=== PATIENT | female | born 1985 | race Caucasian/White ===

== ENCOUNTER 2017-03-09 07:42 | Inpatient (IN) | payer BC, OTHER ==
[2017-03-09] VITALS (16 sets, daily range): BP systolic 87–116; BP diastolic 51–71; PULSE 76–96; RESP 18–20; TEMP 97.6–98.6
[~2017-03-09] VITALS: Ht 152.4 cm; Wt 55.0 kg
[~2017-03-09 07:42] MED LIST: BACT800T5 PO
[2017-03-09] MEDS ORDERED: LIDOCAINE HCL 1% 50 ML VIAL I-DERMAL PRN (08:15)
[2017-03-09] MEDS ORDERED: LIDOCAINE HCL 1% 50 ML VIAL INFIL PRN (08:15)
[2017-03-09] MEDS ORDERED: MINERAL OIL 10 ML VIAL TOPICAL PRN (08:15)
--- NOTE | 2017-03-09 08:16 | HHI.HP ---
History & Physical H&P HPI Chief Complaint Contractions and pressure Date Seen: Mar 09, 2017 Travel History International Travel<30 Days: No Contact w/Intl Traveler<30Days: No History of Present Illness HPI Patient is a 31 year old at 35-5/7 weeks gestation who presents today with contractions and increasing pressure. She denies any vaginal bleeding, gush or leaking of fluid. Positive movement. care with [facility]. History (Limited) History Past Medical History Medical History: Denies Significant Hx Obstetric History Obstetric History in 2013 at 37 weeks gestation Elective Past Surgical History Surgical History: No Previous Surgery Family History Family History: Negative Social History Alcohol Use: No Tobacco Use: No Substance Abuse: No Allergies-Medications Allergies-Medications (Allergen,Severity, Reaction): Coded Allergies: No Known Allergies (Unverified , 07/20/14) Home Meds Active Scripts Sulfamethoxazole-Trimethoprim DS (Bactrim DS) 1 Tab Tab, 1 TAB PO Q12 for 7 Days , TAB Prov:Earline Kathleen MD 07/20/14 ROS Review of Systems Except as stated in HPI: all other systems reviewed are Neg General / Constitutional: No: Fever, Chills Eyes: No: Blurred Vision, Visual changes HENT: No: Headaches Cardiovascular: No: Chest Pain or Discomfort, Palpitations Respiratory: No: Cough, Short of Breath Gastrointestinal: No: Nausea, Vomiting Genitourinary: Pelvic Pain, No: Dysuria, Hematuria, Discharge, Vaginal Bleeding Musculoskeletal: No: Edema Neurologic: No: Headache Physical Exam Physical Exam Narrative GENERAL: Well-nourished, well-developed patient. SKIN: Warm and dry. HEAD: Normocephalic and atraumatic. EYES: No scleral icterus. No injection or drainage. ENT: No nasal drainage noted. Mucous membranes pink. Airway patent. NECK: Supple, trachea midline. No JVD. CARDIOVASCULAR: Regular rate and rhythm without murmurs, gallops, or rubs. RESPIRATORY: Breath sounds equal bilaterally. No accessory muscle use. ABDOMEN/GI: Abdomen soft, non-tender, bowel sounds present, no rebound, no guarding Gravid to 35 weeks size GENITOURINARY: External Genitalia: intact and normal in appearance BUS glands: normal Cervix: posterior Dilatation: 3 Effacement: 100 Station: -2 Presentation: vertex Membranes: intact Uterine Contractions: q3-4min FHT's: Category: I Baseline: 140 Reactive: + Variability: moderate Decels: none EXTREMITIES: No cyanosis or edema. BACK: Nontender without obvious deformity. No CVA tenderness. NEUROLOGICAL: Awake and alert. Motor and sensory grossly within normal limits. Normal speech. Data Data Data Vital Signs Reviewed: Yes Orders Orders Vital Signs (Adult) .ON ADMISSION (03/09/17 08:07) ^ Labor Status (03/09/17 08:07) ^ Non Stress Test (03/09/17 08:07) ^ Hydration (03/09/17 08:07) Admit To Inpatient (03/09/17 ) Code Status (03/09/17 08:08) Vital Signs (Adult) .Per protocol (03/09/17 08:08) Activity Oob Ad Janet (03/09/17 08:08) Heart (03/09/17 08:08) Amnioinfusion (03/09/17 08:08) Urinary Catheter Management .ONCE (03/09/17 08:08) Diet Liquid (03/09/17 Breakfast) Lactated Ringer's 1000 Ml Inj (Lr 1000 M (03/09/17 08:08) Lactated Ringer's 1000 Ml Inj (Lr 1000 M (03/09/17 08:08) Sodium Chlorid 0.9% 500 Ml Inj (Ns 500 M (03/09/17 08:15) Sodium Chlor 0.9% 1000 Ml Inj (Ns 1000 M (03/09/17 08:28) Lidocaine 1% Inj (50 Ml) (Xylocaine 1% I (03/09/17 08:15) Citric Acid-Sodium Citrate Liq (Bicitra (03/09/17 08:15) Ondansetron Inj (Zofran Inj) (03/09/17 08:15) Fentanyl Inj (Fentanyl Inj) (03/09/17 08:15) Fentanyl Inj (Fentanyl Inj) (03/09/17 08:15) Penicillin G Potassium Inj (Pfizerpen-G (03/09/17 08:15) Penicillin G Potassium Inj (Pfizerpen-G (03/09/17 12:15) Complete Blood Count With Diff (03/09/17 08:08) Hold Clot (03/09/17 08:08) Abo/Rh Blood Type (03/09/17 08:08) Urinalysis - C+S If Indicated (03/09/17 08:08) Resp Oxygen Non Rebreathe Mask (03/09/17 ) ^ Epidural / Intrathecal Infus (03/09/17 08:08) Oxytocin 30 Units-500ml Premix (Pitocin (03/09/17 08:15) Lidocaine 1% Inj (50 Ml) (Xylocaine 1% I (03/09/17 08:15) Light Mineral Oil (Muri-Lube Oil) (03/09/17 08:15) Inpatient Certification (03/09/17 ) Ob/Psych Drug Screen, Urine (03/09/17 08:08) Betamethasone Inj (Celestone Soluspan In (03/09/17 08:15) MDM MDM Medical Record Reviewed: Yes Narrative Course / MDM 31 year old at 35-5/7 weeks gestation. 1. IUP- Category I tracing, reassuring. 2. Labor- Admit for labor. Penicillin per protocol. UDS. Betamethasone 12mg IM Q24H x 2. 3. GBS unknown sdw Angelika Brady MD, R3 Mar 09, 2017 08:16
[2017-03-09] MEDS: BETAMETHASONE SOD PHOS/ACETATE SUSP 30 MG/5 ML VIAL IM SCH (08:56)
[2017-03-09] MEDS ORDERED: LACTATED RINGER'S 1000 ML INJ 1,000 ML IV PRN (09:00)
[2017-03-09] MEDS ORDERED: CITRIC ACID-SODIUM CITRATE LIQ 30 ML UDC PO SCH (09:00)
[2017-03-09] MEDS ORDERED: OXYTOCIN 30 UNITS-500ML PREMIX 500 ML IV ONE (09:00)
[2017-03-09] MEDS ORDERED: LACTATED RINGER'S 1000 ML INJ 1,000 ML IV SCH (09:00)
[2017-03-09] MEDS ORDERED: SODIUM CHLORID 0.9% 500 ML INJ 500 ML IV PRN (09:00)
[2017-03-09] MEDS ORDERED: ONDANSETRON HCL 4 MG/2 ML VIAL IV PRN (09:00)
[2017-03-09] MEDS ORDERED: PENICILLIN G POTASSIUM INJ 5,000,000 UNITS in SODIUM CHLORIDE 0.9% INJ 100 ML IV ONE (09:00)
[2017-03-09] MEDS ORDERED: SODIUM CHLOR 0.9% 1000 ML INJ 1,000 ML IV PRN (09:00)
[2017-03-09 09:03] LABS: BASOPHIL % 0.3 % (0.0-2.0); EOSINOPHIL # 0.1 TH/MM3 (0-0.4); EOSINOPHIL % 1.4 % (0.0-4.0); HEMATOCRIT 33.4 % (35.0-46.0); HEMO FLAGS DIFF FINAL; LYMPH % 29.9 % (9.0-44.0); LYMPHOCYTE # 2.9 TH/MM3 (1.0-4.8); MEAN CELL VOLUME 93.8 FL (80.0-100.0); MEAN CORPUSCULAR HEMOGLOBIN 30.8 PG (27.0-34.0); MEAN CORPUSCULAR HGB CONC 32.8 % (32.0-36.0); MONO % 6.9 % (0.0-8.0); NEUT % 61.5 % (16.0-70.0); PLATELET COUNT 159 TH/MM3 (150-450); RED BLOOD COUNT 3.56 MIL/MM3 (4.00-5.30); WHITE BLOOD COUNT 9.8 TH/MM3 (4.0-11.0)
[2017-03-09 09:09] LABS: BLOOD, URINE NEG (NEG); COMMENT (UR) CULT NOT INDICATED; CULTURE IF INDICATED CULT NOT INDICATED; GLUCOSE,URINE NEG (NEG); KETONE, URINE NEG (NEG); MUCUS URINE FEW /lpf (OCC); NITRITE,URINE NEG (NEG); PH, URINE 6.5 (5.0-8.5); SQUAMOUS EPITHELIAL CELL URINE <1 /hpf (0-5); URINE COLOR YELLOW (YELLW/STRAW)
[2017-03-09] MEDS: PENICILLIN G POTASSIUM INJ 2,500,000 UNITS in SODIUM CHLORIDE 0.9% INJ 100 ML IV SCH ×2 (13:00→17:40)
--- NOTE | 2017-03-09 18:15 | PD.LABORPN ---
Subjective Subjective feeling contractions no leakage or bleeding very hungry Objective Vital Signs Vital Signs Date Time Temp Pulse Resp B/P (MAP) Pulse Ox O2 Delivery O2 Flow Rate FiO2 03/09/17 15:00 81 92/55 (67) 03/09/17 14:42 90 95/54 (68) 03/09/17 14:00 96 87/58 (68) 03/09/17 13:00 85 103/64 (77) 03/09/17 12:15 98.6 03/09/17 12:15 20 03/09/17 12:10 89 114/69 (84) 03/09/17 10:30 98.1 18 03/09/17 10:17 76 116/71 (86) Objective 100/5/-1 category 1 strip Weeks Gestation: 35 Gest Age Assessed Date: Mar 09, 2017 Gest Age Assessed Time: 18:14 Pt started active labor?: No Medical induction of labor?: No Artificial rupture of membrane: No Assessment/Plan Assessment and Plan get second dose of steroids and antibiotics anticipate continued slow change and delivery in next 48 hours. If stops may consider discharge. Maddie Forman MD Mar 09, 2017 18:15
[2017-03-09] MEDS ORDERED: ZOLPIDEM TARTRATE 5 MG TAB PO PRN (21:00)
[2017-03-10 08:02] VITALS: BP 105/63; PULSE 85; TEMP 98.1
[2017-03-10 08:14] VITALS: RESP 17
--- NOTE | 2017-03-10 08:35 | PD.OB.ANTE ---
Subjective Interval History contractions stopped yesterday and cervix remained 4-6 (no pressure now and closer to 4 cm) some bloody show strip reassuring Objective Vital Signs Vital Signs Date Time Temp Pulse Resp B/P (MAP) Pulse Ox O2 Delivery O2 Flow Rate FiO2 03/10/17 08:14 17 03/10/17 08:02 98.1 85 105/63 (77) 03/09/17 21:00 18 03/09/17 19:15 18 03/09/17 19:00 106/67 (80) 03/09/17 19:00 81 03/09/17 18:47 97.6 03/09/17 18:47 76 108/64 (79) 03/09/17 18:00 83 105/55 (72) 03/09/17 17:00 80 111/64 (80) 03/09/17 15:00 81 92/55 (67) 03/09/17 14:42 90 95/54 (68) 03/09/17 14:00 96 87/58 (68) 03/09/17 13:00 85 103/64 (77) 03/09/17 12:15 98.6 03/09/17 12:15 20 03/09/17 12:10 89 114/69 (84) 03/09/17 10:30 98.1 18 03/09/17 10:17 76 116/71 (86) Physical Exam GENERAL: Well-nourished, well-developed patient. CARDIOVASCULAR: Regular rate and rhythm without murmurs, gallops, or rubs. RESPIRATORY: Breath sounds equal bilaterally. No accessory muscle use. ABDOMEN/GI: Abdomen soft, non-tender. Fundus: [-] GENITOURINARY: External Genitalia: intact and normal in appearance 4-6 cervix deviated to left and posterior bloody show EXTREMITIES: No cyanosis or edema, non-tender, without signs of DVT. Assessment and Plan Assessment and Plan watch through lunch discharge if behaves Maddie Forman MD Mar 10, 2017 08:35
[2017-03-10] MEDS: BETAMETHASONE SOD PHOS/ACETATE SUSP 30 MG/5 ML VIAL IM SCH (09:01)
--- NOTE | 2017-03-10 12:03 | HHI.DCPOC ---
Discharge Care Plan Report Symptoms to Your Doctor -Temperature above 100.5 degrees -Redness, of incision or excessive or foul smelling drainage -Unusual pain or calf pain -Increased vaginal bleeding -Painful or difficulty urinating -Feelings of extreme sadness or anxiety after 2 weeks Goals to Promote Your Health * To prevent worsening of your condition and complications * To maintain your health at the optimal level Directions to Meet Your Goals Take your medications as prescribed Follow your dietary instruction Follow activity as directed Ensure plenty of rest for recovery Drink fluids for hydration Keep your appointments as scheduled Take your immunizations and boosters as scheduled If your symptoms worsen call your PCP, if no PCP go to Urgent Care Center or Emergency Room Smoking is Dangerous to Your Health. Avoid second hand smoke Call the 24-hour crisis hotline for domestic abuse at Maddie Forman MD Mar 10, 2017 12:02
[2017-03-12 10:01] LABS: HEROIN (6-ACETYLMORPHINE) UR NEG (NEG); OBMETHADONE UR NEG (NEG); PHENCYCLIDINE URINE NEG (NEG)
[2017-03-12 10:02] LABS: BATH SALTS (MDPV) UR NEG (NEG); ECSTASY (MDMA) UR NEG (NEG); GABAPENTIN UR NEG (NEG); HYDROMORPHONE U NEG (NEG); K2 SPICE UR NEG (NEG)
[2017-04-05] MEDS ORDERED: PREN29TA PO (09:03)
== END 2017-03-10 12:47 | disposition home or self-care (01) | DRG 778 ==
LOC: HOBED 07:42 → H2EA 08:15 → UNDODISIN 03-10 12:47
PROVIDERS: ADMIT Obstetrics & Gynecology; ATTEND Obstetrics & Gynecology
DX: O60.03 Preterm labor without delivery, third trimester (principal); Z3A.35 35 weeks gestation of pregnancy
CPT/HCPCS: 59025; 80307; 81001; 85025; 86900; 86901; G0481; J0702; J2540; J3010; J7120

== ENCOUNTER 2017-03-30 07:25 | Emergency (ER) | payer BC ==
[~2017-03-30] VITALS: Ht 152.4 cm; Wt 58.1 kg
--- NOTE | 2017-03-30 08:12 | PD ---
HPI Chief Complaint Contractions Date Seen: Mar 30, 2017 Time Seen: 08:09 Travel History International Travel<30 Days: No Contact w/Intl Traveler<30Days: No Known Affected Area: No History of Present Illness HPI 31-year-old who is at 38 weeks and 5 days comes in complaining of contractions and gotten worse since . Patient denies rupture membranes vaginal bleeding. Patient's been at bedrest for the past 3 weeks because of contractions at 35 weeks. Patient had a group B strep done but it had to be repeated and was just sent to the lab on Wednesday. Weeks Gestation: 38 Para: 1 : 3 Miscarriage: 1 History Past Medical History Medical History: Denies Significant Hx Obstetric History Obstetric History Spontaneous vaginal delivery Past Surgical History Surgical History: No Previous Surgery Family History Family History: Negative Social History Alcohol Use: No Tobacco Use: No Substance Abuse: No Allergies-Medications (Allergen,Severity, Reaction): Coded Allergies: No Known Allergies (Unverified , 03/30/17) Home Meds Active Scripts Sulfamethoxazole-Trimethoprim DS (Bactrim DS) 1 Tab Tab, 1 TAB PO Q12 for 7 Days , TAB Prov:Earline Kathleen MD 07/20/14 Review of Systems Except as stated in HPI: all other systems reviewed are Neg Physical Exam Narrative GENERAL: Well-nourished, well-developed patient. SKIN: Warm and dry. HEAD: Normocephalic and atraumatic. EYES: No scleral icterus. No injection or drainage. ENT: No nasal drainage noted. Mucous membranes pink. Airway patent. NECK: Supple, trachea midline. No JVD. CARDIOVASCULAR: Regular rate and rhythm without murmurs, gallops, or rubs. RESPIRATORY: Breath sounds equal bilaterally. No accessory muscle use. ABDOMEN/GI: Abdomen soft, non-tender, bowel sounds present, no rebound, no guarding Gravid to [38 weeks-] weeks size Fundal Height: [-] GENITOURINARY: External Genitalia: intact and normal in appearance BUS glands: [-Normal] Cervix: [-Posterior] Dilatation: [3-] Effacement: [70-] Station: [--2] Presentation: [Vertex-] Membranes: [intact] Uterine Contractions: [-Irregular every 5-10] FHT's: Category: [1-] Baseline: [140-] Reactive: [-Moderate] Variability: [-Moderate] Decels: [-Absent] EXTREMITIES: No cyanosis or edema. BACK: Nontender without obvious deformity. No CVA tenderness. NEUROLOGICAL: Awake and alert. Motor and sensory grossly within normal limits. Five out of 5 muscle strength in all muscle groups. Normal speech. Recheck at 1025am Cervix unchanged /-2, posterior Contractions irregular Data Data Vital Signs Reviewed: Yes [facility] [place] Medical Record Reviewed: Yes Plan 31yo at 38-39 weeks gestation False labor Discharge home with follow up this Wednesday, earlier or return here if contractions worsen, ROM, or vaginal bleeding. Diagnosis Diagnosis: Primary Impression: 38 weeks gestation of Additional Impression: False labor after 37 completed weeks of gestation Disposition: DISCHARGE HOME Brandee House MD Mar 30, 2017 08:12
== END 2017-03-30 11:04 | disposition home or self-care (01) ==
LOC: HOBED 07:25
DX: O47.1 False labor at or after 37 completed weeks of gestation (principal); Z3A.38 38 weeks gestation of pregnancy
CPT/HCPCS: 59025

== ENCOUNTER 2017-04-05 08:18 | Inpatient (IN) | payer BC ==
[~2017-04-05] VITALS: Ht 152.4 cm; Wt 59.9 kg
[2017-04-05] MEDS ORDERED: LACTATED RINGER'S 1000 ML INJ 1,000 ML IV SCH (08:48)
[2017-04-05] MEDS ORDERED: LACTATED RINGER'S 1000 ML INJ 1,000 ML IV PRN (08:48)
--- NOTE | 2017-04-05 08:58 | HHI.HP ---
HPI Chief Complaint term labor induction, advanced dilation at office exam Date Seen: Apr 05, 2017 Time Seen: 08:50 Travel History International Travel<30 Days: No Contact w/Intl Traveler<30Days: No Known Affected Area: No History of Present Illness HPI 31 yo with myers IUP at 39w4d, EDC 04/08/17, seen in the office on Wednesday04/02/17 with c/o pelvic pressure, irregular contractions, and SVE in office 4-5/-2. Due to advanced dilation it was discussed with pt coming in for labor augmentation, pt desired to see if labor occurred spontaneously over the weekend, if not was amenable to augmentation today. Pt continues to have irregular contractions and pelvic pressure, 3/10 low pelvis. Denies LOF, VB. Endorses good FM Weeks Gestation: 40 Para: 1 : 3 Miscarriage: 0 : 1 History Past Medical History Narrative Medical denies Obstetric History Obstetric History h/o EAB x 1 07/02/14 = 37 wk 5#11oz male FT "Ramon" G3 = current Past Surgical History Narrative Surgical denies Family History Family History: Negative Social History Alcohol Use: No Tobacco Use: No Substance Abuse: No Allergies-Medications (Allergen,Severity, Reaction): Coded Allergies: No Known Allergies (Unverified , 03/30/17) Home Meds Active Scripts Sulfamethoxazole-Trimethoprim DS (Bactrim DS) 1 Tab Tab, 1 TAB PO Q12 for 7 Days , TAB Prov:Earline Kathleen MD 07/20/14 Review of Systems General / Constitutional: Weight Gain, No: Fever, Chills, Other Eyes: No: Diploplia, Blurred Vision, Visual changes, Pain, Photophobia HENT: No: Headaches, Vertigo, Lightheadedness Cardiovascular: No: Irregular Rhythm, Chest Pain or Discomfort, Palpitations, Tachycardia, Syncope, Varicosities, Edema, Cyanosis Respiratory: No: Cough, Short of Breath, Other Gastrointestinal: No: Nausea, Vomiting, Diarrhea Genitourinary: Pelvic Pain (pressure), No: Decreased Urinary Output, Oliguria Musculoskeletal: No: Limited ROM, Weakness, Cramping, Edema, Pain Skin: No Rash, No Itching, No Dryness, No Lumps, No Change in Pigmentation, No Change in Nails, No Alopecia, No Lesions Neurologic: No: Weakness, Dizziness, Syncope, Focal Abnormalities, Coordination Problem, Headache, Slurred Speech, Seizures Psychiatric: No: Depression, Suicidal Ideations, Homicidal Ideation Endocrine: No: Heat Intolerance, Cold Intolerance, Polydipsia, Polyuria, Other Physical Exam Narrative GENERAL: Well-nourished, well-developed patient. SKIN: Warm and dry. HEAD: Normocephalic and atraumatic. EYES: No scleral icterus. No injection or drainage. ENT: No nasal drainage noted. Mucous membranes pink. Airway patent. NECK: Supple, trachea midline. No JVD. CARDIOVASCULAR: Regular rate and rhythm without murmurs, gallops, or rubs. RESPIRATORY: Breath sounds equal bilaterally. No accessory muscle use. BREASTS: deferred. ABDOMEN/GI: Abdomen soft, non-tender, bowel sounds present, no rebound, no guarding Gravid to [40] weeks size Fundal Height: [39] GENITOURINARY: External Genitalia: intact and normal in appearance BUS glands: [wnl] Cervix: [posterior] Dilatation: [4-5] Effacement: [50] Station: [-2] Presentation: [vtx] Membranes: [intact] Uterine Contractions: [irregular] FHT's: 140s, NST pending, just got on monitor EXTREMITIES: No cyanosis or edema. BACK: Nontender without obvious deformity. No CVA tenderness. NEUROLOGICAL: Awake and alert. Motor and sensory grossly within normal limits. Five out of 5 muscle strength in all muscle groups. Normal speech. Caprini VTE Risk Assessment Caprini VTE Risk Assessment: No/Low Risk (score <= 1) VTE Pharm Contraindication: High risk for bleeding Caprini Risk Assessment Model Point Value = 1 Point Value = 2 Point Value = 3 Point Value = 5 Age 41-60 Minor surgery BMI > 25 kg/m2 Swollen legs Varicose veins or History of unexplained or recurrent spontaneous Oral contraceptives or hormone replacement Sepsis (< 1 month) Serious lung disease, including pneumonia (< 1 month) Abnormal pulmonary function Acute myocardial infarction Congestive heart failure (< 1 month) History of inflammatory bowel disease Medical patient at bed rest Age 61-74 Arthroscopic surgery Major open surgery (> 45 min) Laparoscopic surgery (> 45 min) Malignancy Confined to bed (> 72 hours) Immobilizing plaster cast Central venous access Age >= 75 History of VTE Family history of VTE Factor V Leiden Prothrombin [id number] Lupus anticoagulant Anticardiolipin antibodies Elevated serum homocysteine Heparin-induced thrombocytopenia Other congenital or acquired thrombophilia Stroke (< 1 month) Elective arthroplasty Hip, pelvis, or leg fracture Acute spinal cord injury (< 1 month) Prophylaxis Regimen Total Risk Factor Score Risk Level Prophylaxis Regimen 0-1 Low Early ambulation 2 Moderate Order ONE of the following: *Sequential Compression Device (SCD) *Heparin 5000 units SQ BID 3-4 Higher Order ONE of the following medications: *Heparin 5000 units SQ TID *Enoxaparin/Lovenox 40 mg SQ daily (WT < 150 kg, CrCl > 30 mL/min) *Enoxaparin/Lovenox 30 mg SQ daily (WT < 150 kg, CrCl > 10-29 mL/min) *Enoxaparin/Lovenox 30 mg SQ BID (WT < 150 kg, CrCl > 30 mL/min) AND/OR *Sequential Compression Device (SCD) 5 or more Highest Order ONE of the following medications: *Heparin 5000 units SQ TID (Preferred with Epidurals) *Enoxaparin/Lovenox 40 mg SQ daily (WT < 150 kg, CrCl > 30 mL/min) *Enoxaparin/Lovenox 30 mg SQ daily (WT < 150 kg, CrCl > 10-29 mL/min) *Enoxaparin/Lovenox 30 mg SQ BID (WT < 150 kg, CrCl > 30 mL/min) AND *Sequential Compression Device (SCD) Data Data Vital Signs Reviewed: Yes Orders Orders Admit To Inpatient (04/05/17 ) Code Status (04/05/17 08:48) Vital Signs (Adult) .Per protocol (04/05/17 08:48) Activity Oob Ad Janet (04/05/17 08:48) Heart (04/05/17 08:48) Amnioinfusion (04/05/17 08:48) Urinary Catheter Management .ONCE (04/05/17 08:48) Lactated Ringer's 1000 Ml Inj (Lr 1000 M (04/05/17 08:48) Lactated Ringer's 1000 Ml Inj (Lr 1000 M (04/05/17 08:48) Sodium Chlorid 0.9% 500 Ml Inj (Ns 500 M (04/05/17 09:00) Sodium Chlor 0.9% 1000 Ml Inj (Ns 1000 M (04/05/17 09:08) Lidocaine 1% Inj (50 Ml) (Xylocaine 1% I (04/05/17 09:00) Citric Acid-Sodium Citrate Liq (Bicitra (04/05/17 09:00) Ondansetron Inj (Zofran Inj) (04/05/17 09:00) Fentanyl Inj (Fentanyl Inj) (04/05/17 09:00) Fentanyl Inj (Fentanyl Inj) (04/05/17 09:00) Complete Blood Count With Diff (04/05/17 08:48) Hold Clot (04/05/17 08:48) Abo/Rh Blood Type (04/05/17 08:48) Urinalysis - C+S If Indicated (04/05/17 08:48) Resp Oxygen Non Rebreathe Mask (04/05/17 ) ^ Epidural / Intrathecal Infus (04/05/17 08:48) Oxytocin 30 Units-500ml Premix (Pitocin (04/05/17 09:00) Lidocaine 1% Inj (50 Ml) (Xylocaine 1% I (04/05/17 09:00) Light Mineral Oil (Muri-Lube Oil) (04/05/17 09:00) Inpatient Certification (04/05/17 ) Specimen To Be Collected PRN (04/05/17 08:48) ^ Non Stress Test (04/05/17 08:48) Response To Medication .Post New Med Administration, Reaction (04/05/17 08:48) ^ Discontinue Medication (04/05/17 08:48) Oxytocin Drip:Individualized (04/05/17 09:00) Group B Strep: Negative Assessment/Plan Problem List: (1) Term ICD Codes: Z34.80 - Encounter for supervision of other normal , unspecified trimester Status: Acute (2) Labor and delivery, indication for care ICD Codes: O75.9 - Complication of labor and delivery, unspecified Status: Acute Assessment and Plan 31 yo with IUP at 39w4d by LMP c/w 9w2d sonogram, admit for term labor augmentation, advanced dilation in office last week 1) labor augmentation: plan for pitocin, AROM as necessary, anticipate 2) GBS neg 3) status: male, vertex, EFW 7# Discharge Planning routine for 2d PP Sugar Gomez MD Apr 05, 2017 08:58
[2017-04-05] MEDS ORDERED: MINERAL OIL 10 ML VIAL TOPICAL PRN (09:00)
[2017-04-05] MEDS ORDERED: SODIUM CHLORID 0.9% 500 ML INJ 500 ML IV PRN (09:00)
[2017-04-05] MEDS ORDERED: LIDOCAINE HCL 1% 50 ML VIAL INFIL PRN (09:00)
[2017-04-05] MEDS ORDERED: OXYTOCIN 30 UNITS-500ML PREMIX 500 ML IV ONE (09:00)
[2017-04-05] MEDS ORDERED: ONDANSETRON HCL 4 MG/2 ML VIAL IV PRN (09:00)
[2017-04-05] MEDS ORDERED: OXYTOCIN 30 UNITS-500ML PREMIX 500 ML IV SCH ×2 (09:00→15:15)
[2017-04-05] MEDS ORDERED: LIDOCAINE HCL 1% 50 ML VIAL I-DERMAL PRN (09:00)
[2017-04-05] MEDS ORDERED: CITRIC ACID-SODIUM CITRATE LIQ 30 ML UDC PO SCH (09:00)
[2017-04-05] MEDS ORDERED: PREN29TA PO ×2 (09:03)
[2017-04-05] MEDS ORDERED: SODIUM CHLOR 0.9% 1000 ML INJ 1,000 ML IV PRN (09:08)
[2017-04-05 09:14] LABS: AUTOMATED NEUTROPHIL # 6.6 TH/MM3 (1.8-7.7); BASOPHIL # 0.1 TH/MM3 (0-0.2); BASOPHIL % 0.6 % (0.0-2.0); EOSINOPHIL # 0.1 TH/MM3 (0-0.4); EOSINOPHIL % 1.3 % (0.0-4.0); HEMATOCRIT 36.8 % (35.0-46.0); HEMO FLAGS DIFF FINAL; LYMPH % 28.1 % (9.0-44.0); LYMPHOCYTE # 2.9 TH/MM3 (1.0-4.8); MEAN CELL VOLUME 95.3 FL (80.0-100.0); MEAN CORPUSCULAR HEMOGLOBIN 32.5 PG (27.0-34.0); MEAN CORPUSCULAR HGB CONC 34.1 % (32.0-36.0); MONO % 5.7 % (0.0-8.0); NEUT % 64.3 % (16.0-70.0); PLATELET COUNT 145 TH/MM3 (150-450); RED BLOOD COUNT 3.86 MIL/MM3 (4.00-5.30); RED CELL DISTRIBUTION WIDTH 16.1 % (11.6-17.2); WHITE BLOOD COUNT 10.3 TH/MM3 (4.0-11.0)
[2017-04-05 09:21] LABS: BACTERIA, URINE OCC /hpf; BLOOD, URINE NEG (NEG); GLUCOSE,URINE NEG (NEG); KETONE, URINE NEG (NEG); MUCUS URINE FEW /lpf (OCC); NITRITE,URINE NEG (NEG); PH, URINE 6.5 (5.0-8.5); SQUAMOUS EPITHELIAL CELL URINE 1 /hpf (0-5); URINE COLOR YELLOW (YELLW/STRAW)
[2017-04-05 09:23] LABS: COMMENT (UR) CULT NOT INDICATED; CULTURE IF INDICATED CULT NOT INDICATED
[2017-04-05] MEDS ORDERED: OXYTOCIN 10 UNIT/ML AMP ONE (09:41)
[2017-04-05] MEDS ORDERED: OXYTOCIN 30 UNITS/NS 500ML PREMIX IV SCH (10:15)
[2017-04-05] MEDS ORDERED: fentaNYL 2MCG-BUPIV 0.125% INJ 100 ML ONE (10:43)
[2017-04-05] MEDS ORDERED: ePHEDrine/NS 25 MG/5 ML SYR ONE (11:08)
[2017-04-05] MEDS ORDERED: ePHEDrine/NS 25 MG/5 ML SYR IV PRN (11:45)
[2017-04-05] MEDS ORDERED: fentaNYL 2MCG-BUPIV 0.125% 100 ML EPIDURAL SCH (11:45)
[2017-04-05] MEDS ORDERED: NO SYSTEM NARCOTICS PRN (11:45)
[2017-04-05] MEDS ORDERED: DO NOT ADMINISTER ANTICOAGULANTS PRN (11:45)
--- NOTE | 2017-04-05 12:08 | PD.LABORPN ---
Subjective Subjective feeling comfortable w epidural in place; not feeling contractions Objective Objective Pelvic Exam: Cervix: [posterior to mid] Dilatation: [6] Effacement: [70] Station: [-2] Presentation: [vtx] Membranes:AROM'd clear this check Uterine Contractions: [q3-5 min] FHT's: Category: [I] Baseline: [140s] Reactive: [y] Variability: [y] Decels: [n] Weeks Gestation: 40 Gest Age Assessed Date: Apr 05, 2017 Gest Age Assessed Time: 12:05 Pt started active labor?: Yes Active labor start date: Apr 05, 2017 Active labor start time: 12:05 Medical induction of labor?: Yes Medical induction start date: Apr 05, 2017 Medical induction start time: 08:30 Artificial rupture of membrane: Yes Artificial ROM date: Apr 05, 2017 Artifical ROM time: 12:00 Assessment/Plan Problem List: (1) Term ICD Codes: Z34.80 - Encounter for supervision of other normal , unspecified trimester Status: Acute (2) Labor and delivery, indication for care ICD Codes: O75.9 - Complication of labor and delivery, unspecified Status: Acute Assessment and Plan 31 yo with IUP at 39w4d admit for augmentation of labor at term, advanced dilation in office 1) augmentation of labor: progressing well, 6cm, more mid than posterior this check; AROM'd and IUPC placed, continue to augment 2) GBS neg 3) status: vertex, male, Cat I tracing, EFW 7# Sugar Gomez MD Apr 05, 2017 12:08
--- NOTE | 2017-04-05 15:01 | PD.OB.DELI ---
Weeks gestation: 40 Gest age assessed date: Apr 05, 2017 Gest age assessed time: 12:05 Pt started active labor?: Yes Active labor start date: Apr 05, 2017 Active labor start time: 12:05 Medical induction of labor?: Yes Medical induction start date: Apr 05, 2017 Medical induction start time: 08:30 Artificial rupture of membrane: Yes Artificial ROM date: Apr 05, 2017 Artifical ROM time: 12:00 Anesthesia: Epidural Episiotomy: None Vaginal Delivery: Normal Presentation: Occiput anterior, Compound (left hand) Nuchal Cord: None Delayed cord clamping (45 sec): Yes Infant: Male Delivery date: Apr 05, 2017 Delivery time: 14:49 One Minute : 9 Five Minute : 9 Weight: 7#8oz Placenta: Spontaneous delivery Laceration: No lacerations Estimated blood loss: 100 mL Sugar Gomez MD Apr 05, 2017 15:01
--- NOTE | 2017-04-05 15:02 | HHI.DCPOC ---
Discharge Care Plan Diagnosis: (1) (spontaneous vaginal delivery) Your Health Problems Are: Vaginal delivery Report Symptoms to Your Doctor -Temperature above 100.5 degrees -Redness, of incision or excessive or foul smelling drainage -Unusual pain or calf pain -Increased vaginal bleeding -Painful or difficulty urinating -Feelings of extreme sadness or anxiety after 2 weeks Goals to Promote Your Health * To prevent worsening of your condition and complications * To maintain your health at the optimal level Directions to Meet Your Goals Take your medications as prescribed Follow your dietary instruction Follow activity as directed Ensure plenty of rest for recovery Drink fluids for hydration Keep your appointments as scheduled Take your immunizations and boosters as scheduled If your symptoms worsen call your PCP, if no PCP go to Urgent Care Center or Emergency Room Smoking is Dangerous to Your Health. Avoid second hand smoke Call the 24-hour crisis hotline for domestic abuse at Sugar Gomez MD Apr 05, 2017 15:02
[2017-04-05] MEDS ORDERED: ACETAMINOPHEN 325 MG TAB PO PRN (15:15)
[2017-04-05] MEDS ORDERED: ONDANSETRON ODT 4 MG TAB PO PRN (15:15)
[2017-04-05] MEDS ORDERED: BENZOCAINE 20% TOPICAL SPRAY 60 ML CAN TOPICAL PRN (15:15)
[2017-04-05] MEDS ORDERED: ALUMINUM/MAGNESIUM/SIMETH 30 ML CUP PO PRN (15:15)
[2017-04-05] MEDS ORDERED: SODIUM CHLORIDE 0.9% FLUSH 10 ML FLUSH IV FLUSH PRN (15:15)
[2017-04-05] MEDS ORDERED: DOCUSATE SODIUM 50 MG/SENNA 8.6 MG TAB PO PRN (15:15)
[2017-04-05] MEDS ORDERED: IBUPROFEN 600 MG TAB PO PRN (15:15)
[2017-04-05] MEDS ORDERED: WITCH HAZEL 50%/GLYCERIN 12.5% 40 PAD JAR TOPICAL PRN (15:15)
[2017-04-05] MEDS ORDERED: ZOLPIDEM TARTRATE 5 MG TAB PO PRN (15:15)
[2017-04-05] MEDS ORDERED: MEASLES, MUMPS, RUBELLA VACCINE 0.5 ML VIAL SQ ONE (16:00)
[2017-04-05] MEDS ORDERED: DIPHTH/TETANUS/ACEL PERTUSSIS (BOOSTER) 0.5 ML VIAL/PFS IM ONE (16:00)
[2017-04-05 20:30] VITALS: BP 118/75; PULSE 69; RESP 18
[2017-04-05] MEDS ORDERED: SODIUM CHLORIDE 0.9% FLUSH 10 ML FLUSH IV FLUSH SCH (21:00)
--- NOTE | 2017-04-06 06:24 | HHI.OB ---
Subjective Post Day: 1 Remarks s/p uncomplicated over intact perineum Objective Objective Remarks GENERAL: Well-nourished, well-developed patient. CARDIOVASCULAR: Regular rate and rhythm without murmurs, gallops, or rubs. RESPIRATORY: Breath sounds equal bilaterally. No accessory muscle use. ABDOMEN/GI: Abdomen soft, non-tender. Fundus: Firm, non-tender at umbilicus. GENITOURINARY: Light bleeding. EXTREMITIES: No cyanosis or edema, non-tender, without signs of DVT. Medications and IVs Current Medications Medications (Trade) Dose Ordered Sig/Hien Route Start Time Stop Time Status Last Admin (NS Flush) 2 ml BID IV FLUSH 04/05/17 21:00 (NS Flush) 2 ml UNSCH PRN IV FLUSH 04/05/17 15:15 (Tylenol) 650 mg Q4H PRN PO 04/05/17 15:15 (Motrin) 600 mg Q6H PRN PO 04/05/17 15:15 04/06/17 02:44 (Americaine 20% Top Spr) 1 spray Q4H PRN TOPICAL 04/05/17 15:15 04/05/17 19:40 (Tucks Pads) 1 applic QID PRN TOPICAL 04/05/17 15:15 04/05/17 19:40 (Nichole-Colace) 2 tab Q12H PRN PO 04/05/17 15:15 (Ambien) 5 mg HS PRN PO 04/05/17 15:15 (Mag-Al Plus Susp Liq) 15 ml Q8H PRN PO 04/05/17 15:15 (Zofran Odt) 4 mg Q6H PRN PO 04/05/17 15:15 04/05/17 16:07 Assessment/Plan Problem List: (1) (spontaneous vaginal delivery) ICD Codes: O80 - Encounter for full-term uncomplicated delivery Status: Acute (2) Term ICD Codes: Z34.80 - Encounter for supervision of other normal , unspecified trimester Status: Acute (3) Labor and delivery, indication for care ICD Codes: O75.9 - Complication of labor and delivery, unspecified Status: Acute Assessment and Plan 31 yo s/p over intact perineum of healthy male infant "Aryan" at 39w4d - bottlefeeding - routine supportive care - plan for circ today, infant may be discharged today - routine d/c planning for today or tmrw Discharge Planning routine for 2d PP Sugar Gomez MD Apr 06, 2017 06:24
[2017-04-06] MEDS ORDERED: IBUP-232 PO (06:25)
== END 2017-04-06 17:05 | disposition home or self-care (01) | DRG 775 ==
LOC: H2EB 08:18 → H1EA 16:18
PROVIDERS: ADMIT Obstetrics & Gynecology; ATTEND Obstetrics & Gynecology
PROC: 10E0XZZ Delivery of Products of Conception, External Approach (ICD-10-PCS; principal; 2017-04-05)
PROC: 10907ZC Drainage of Amniotic Fluid, Therapeutic from Products of Conception, Via Natural or Artificial Opening (ICD-10-PCS; 2017-04-05)
PROC: 10H07YZ Insertion of Other Device into Products of Conception, Via Natural or Artificial Opening (ICD-10-PCS; 2017-04-05)
DX: O32.6XX0 Maternal care for compound presentation, not applicable or unspecified (principal); Z37.0 Single live birth; Z3A.39 39 weeks gestation of pregnancy
CPT/HCPCS: 59025; 81001; 85025; J2590; J7120